=== PATIENT | male | born 1955 | race Caucasian/White ===

== ENCOUNTER 2022-09-27 22:53 | Emergency (ER) | payer BC, SELFPAY ==
[2022-09-27 23:06] VITALS: BP 165/89; PULSE 56; RESP 18; TEMP 36.8; O2SAT 99; BMI 26.2
[2022-09-27 23:11] VITALS: BP 154/89; PULSE 60; RESP 18; O2SAT 98
[2022-09-27 23:30] VITALS: O2SAT 99
[2022-09-27 23:31] VITALS: BP 153/91; PULSE 61; RESP 18; O2SAT 95
--- NOTE | 2022-09-27 23:53 | ED_ITS ---
HPI - General Adult General Date Seen: 09/27/22 Chief complaint: Chest Pain Stated complaint: Chest Pain Time Seen by Provider: 09/27/22 23:08 Source: patient Mode of arrival: ambulatory Limitations: no limitations History of Present Illness HPI narrative: Patient is a 67-year-old male who presents for evaluation of pleuritic chest pain which has been present since 05:30 this morning. Pain is localized to just left of the sternum. Does not radiate. He denies shortness of breath. Symptoms have been steady throughout the day although he feels that maybe gotten a little bit worse this evening. They are not positional. It does not hurt to move. He has not taken any medications, and says the pain is pretty mild. He denies any fever or cough. He does say week ago he was shoveling and the blade of the shoulder got caught on the pavement and the handle of the shovel hit him in the chest, but he has not had any pain in that area since then. He denies any lower extremity swelling or pain. No recent travel or immobility. No history of DVT or PE. There is no family history of coronary artery disease, DVT or PE. He denies any prior health history aside from eosinophilic es ophagitis. He does note that he is due for an EGD in the near future. He does not smoke and does not drink. Related Data Home Medications Medication Instructions Recorded Confirmed No Known Home Medications 09/27/22 09/27/22 Allergies Allergy/AdvReac Type Severity Reaction Status Date / Time No Known Drug Allergies Allergy Verified 09/27/22 23:08 Review of Systems Status of ROS: Reports: 10 or more systems reviewed and unremarkable except as noted in History and below [facility] Medical History Adenomatous colon polyp Eosinophilic esophagitis Surgical History (Updated 09/27/22 @ 23:33 by Carlos Madsen RN) History of laparoscopic cholecystectomy History of tonsillectomy Social History Smoking Status: Never smoker Do you use any of these nicotine containing products: None Second hand tobacco smoke exposure: No How often do you have a drink containing alcohol: never How often do you have six or more drinks on one occasion: Never AUDIT-C Alcohol total score: 0 Non-prescribed substance use: denies use Exam Narrative: Exam Narrative: Vital signs as noted above. In general, an alert, nontoxic male. Looks comfortable. Breathing easily. Head: Normocephalic, atraumatic. Eyes: Pupils are equal reactive. Extraocular movements are full. Conjunctivae are normal. ENT: Mucous membranes are moist. Throat is normal. Neck: Supple without lymphadenopathy. Heart: Regular rate and rhythm. No murmur or rub. Chest is nontender to palpa tion. Lungs: Clear bilaterally. No increased work of breathing, crackles or wheezes. Abdomen: Soft and nontender. No organomegaly. Extremities: Well perfused. No edema. No calf tenderness. Pulses intact. Neurologic: Patient is alert and oriented to person and place. Speech is fluent. Face is symmetric. Moves all extremities equally. Affect: Normal. Skin: Warm and dry. Well perfused. Const: Vital Signs, click to edit/add: Vital Signs - 24 hr 09/27/22 23:06 09/27/22 23:30 09/27/22 23:11 Temperature 98.2 F Pulse Rate 60 Pulse Rate [Right Pulse Oximeter] 56 L Respiratory Rate 18 18 Blood Pressure 154/89 H Blood Pressure [Ri ght Upper Arm] 165/89 H Pulse Oximetry 99 99 98 Oxygen Delivery Me thod Room Air 09/27/22 23:31 09/28/22 00:01 09/28/22 00:32 Temperature Pulse Rate 61 51 L 52 L Pulse Rate [Right Pulse Oximeter] Respiratory Rate 18 18 18 Blood Pressure 153/91 H 146/102 H 148/89 H Blood Pressure [Ri ght Upper Arm] Pulse Oximetry 95 97 97 Oxygen Delivery Me thod Documenting provider has reviewed patient's vital signs: yes Course Course Hospital Course: On arrival, patient had an EKG which by my review shows no acute ST segment changes. He is maintained on the monitor and oximetry. Overall, history is not particularly suggestive of acute coronary syndrome. Initial troponin is 0. I think with pain throughout the day, and a history that is not consistent with acute coronary syndrome that a single troponin is adequate. He does not have risk factors for PE, but is 67 years old. I am going to get a D-dimer, I think if that is negative that is adequate to rule out pulmonary embolism. If elevated, CT scan will be done. In the meantime I am holding off on chest i maging. His symptoms are not positional, I do not see evidence of pericarditis on his EKG. White count is normal at 7.4. Other labs are pending at this time. Given the trauma to his chest wall was a week ago and he has been asymptomatic since then, I doubt this represents an injury related to that episode. Troponin is 0. D-dimer is normal. Chest x-ray by my review is normal, final radiology read is negative as well. Other labs show normal white blood cell count and hemoglobin. LFTs and lipase are normal, CRP is less than 0.5. Metabolic panel is normal. He continues to feel comfortable, without further complaints. It would be reasonable to try thank you for a dose or 2 of ibuprofen, he could double up his enough resolve if needed. If his esophagitis precludes that, he could try Tylenol as well. If symptoms are persistent I would recommend follow-up with primary care next week. For severe pain, new symptoms such as shortness of breath, fever etcetera, return for re-evaluation to the ER. He is comfortable with that plan. Vital Signs Vital signs: Initial Vital Signs Temperature 98.2 F 09/27/22 23:06 Temperature Source Temporal Artery Scan 09/27/22 23:06 Pulse Rate 56 L 09/27/22 23:06 Respiratory Rate 18 09/27/22 23:06 Blood Pressure 165/89 H 09/27/22 23:06 Blood Pressure Mean 114 09/27/22 23:06 Blood Pressure Position Sitting 09/27/22 23:06 Pulse Oximetry 99 09/27/22 23:06 Oxygen Delivery Method 09/27/22 23:06 Vital Signs Temperature 98.2 F 09/27/22 23:06 Pulse Rate 56 L 09/27/22 23:06 Respiratory Rate 18 09/27/22 23:06 Blood Pressure 165/89 H 09/27/22 23:06 Pulse Oximetry 99 09/27/22 23:06 Oxygen Delivery Method 09/27/22 23:06 Temperature 98.2 F 09/27/22 23:06 Pulse Rate 52 L 09/28/22 00:32 Respiratory Rate 18 09/28/22 00:32 Blood Pressure 148/89 H 09/28/22 00:32 Pulse Oximetry 97 09/28/22 00:32 Oxygen Delivery Method 09/27/22 23:06 Medical Decision Making Lab Data Labs: Lab Results 09/27/22 09/27/22 09/27/22 Range/Units 23:35 23:45 23:45 WBC 7.40 (4.50-11.00) K/uL RBC 4.38 (4.30-5.90) m/uL Hgb 14.1 (13.5-17.5) gm/dL Hct 41.7 (37.0-53.0) % MCV 95 (80-100) fL MCH 32 (26-34) pg MCHC 34 (32-36) gm/dL RDW Coeff of Rajwinder 11.3 L (11.5-15.5) % Plt Count 225 (140-440) K/uL Neut % (Auto) 55.9 (42.0-72.0) % Lymph % (Auto) 32.3 (20-44) % [place] % (Auto) 8.9 (0.0-11.0) % Eos % (Auto) 2.3 (0.0-7.0) % Baso % (Auto) 0.5 (0.0-3.0) % Neut # (Auto) 4.13 (1.7-7.0) K/uL Lymph # (Auto) 2.39 (0.90-2.90) K/uL [place] # (Auto) 0.70 (0.00-0.90) K/UL Eos # (Auto) 0.17 (0.00-0.50) K/uL Baso # (Auto) 0.04 (0.00-0.30) K/uL D-Dimer Quant (PE/DVT) 0.38 (0.00-0.50) ug/ml Sodium (135-149) mmol/L Potassium (3.6-5.1) mmol/L Chloride (96-114) mmol/L Carbon Dioxide (20-32) mmol/L BUN (7-30) mg/dL Creatinine (0.5-1.5) mg/dL Estimated Creat Clear Estimated GFR ml/min Glucose (60-115) mg/dL Calcium (8.4-10.6) mg/dL Total Bilirubin (0.1-1.5) mg/dL Direct Bilirubin (0.0-0.5) mg/dL AST (12-35) U/L ALT (4-50) U/L Alkaline Phosphatase (40-150) U/L C-Reactive Protein (0.5-1.0) mg/dL NT-Pro-B Natriuret Pep pg/mL Total Protein (6.0-8.3) g/dL Albumin (3.3-5.0) g/dL Lipase (23-300) U/L POC Troponin I 0.00 L (0.01-0.04) ng/ml 09/27/22 Range/Units 23:45 WBC (4.50-11.00) K/uL RBC (4.30-5.90) m/uL Hgb (13.5-17.5) gm/dL Hct (37.0-53.0) % MCV (80-100) fL MCH (26-34) pg MCHC (32-36) gm/dL RDW Coeff of Rajwinder (11.5-15.5) % Plt Count (140-440) K/uL Neut % (Auto) (42.0-72.0) % Lymph % (Auto) (20-44) % [place] % (Auto) (0.0-11.0) % Eos % (Auto) (0.0-7.0) % Baso % (Auto) (0.0-3.0) % Neut # (Auto) (1.7-7.0) K/uL Lymph # (Auto) (0.90-2.90) K/uL [place] # (Auto) (0.00-0.90) K/UL Eos # (Auto) (0.00-0.50) K/uL Baso # (Auto) (0.00-0.30) K/uL D-Dimer Quant (PE/DVT) (0.00-0.50) ug/ml Sodium 138 (135-149) mmol/L Potassium 3.7 (3.6-5.1) mmol/L Chloride 104 (96-114) mmol/L Carbon Dioxide 28 (20-32) mmol/L BUN 13 (7-30) mg/dL Creatinine 0.9 (0.5-1.5) mg/dL Estimated Creat Clear 77.39 Estimated GFR 94 ml/min Glucose 93 (60-115) mg/dL Calcium 9.0 (8.4-10.6) mg/dL Total Bilirubin 0.5 (0.1-1.5) mg/dL Direct Bilirubin 0.1 (0.0-0.5) mg/dL AST 33 (12-35) U/L ALT 26 (4-50) U/L Alkaline Phosphatase 69 (40-150) U/L C-Reactive Protein < 0.5 L (0.5-1.0) mg/dL NT-Pro-B Natriuret Pep < 20 pg/mL Total Protein 7.3 (6.0-8.3) g/dL Albumin 4.4 (3.3-5.0) g/dL Lipase 63 (23-300) U/L POC Troponin I (0.01-0.04) ng/ml Discharge Plan Discharge Clinical Impression: Pleurisy Patient Disposition: Home, Self-Care Condition: Stable Instructions: Pleurisy (DC) Additional Instructions: Nonsteroidal anti-inflammatory such as ibuprofen are often helpful for this type of pain. You could take 2 pills 2 to 3 times a day with food for a couple of days. If you do not tolerate this due to your esophagitis, you could try Tylenol as well. Labs, EKG and x-ray are all reassuring. There is no evidence of a serious cause for your symptoms. They will likely improve over the next few days. If symptoms are persistent, follow-up with your primary doctor next week. If you have acute worsening, develops severe pain, shortness of breath, fevers, or other new symptoms, return to the emergency department for further evaluation. Prescriptions: No Action No Known Home Medications Follow Up/Referrals: Ashwin Silva MD [Primary Care Provider] - Stand Alone Forms: [facility] Info Instructions
[2022-09-27 23:55] LABS: Basophils Absolute Auto 0.04 K/uL (0.00-0.30); Basophils Percent Auto 0.5 % (0.0-3.0); Eosinophils Absolute Auto 0.17 K/uL (0.00-0.50); Eosinophils Percent Auto 2.3 % (0.0-7.0); Hematocrit 41.7 % (37.0-53.0); Hemoglobin* 14.1 gm/dL (13.5-17.5); Immature Granulocytes Abs Auto 0.01 K/uL (0.00-0.30); Immature Granulocytes Pct Auto 0.1 %; Lymphocytes Absolute Auto 2.39 K/uL (0.90-2.90); Lymphocytes Percent Auto 32.3 % (20-44); Mean Corpuscular HGB Conc 34 gm/dL (32-36); Mean Corpuscular Hemoglobin 32 pg (26-34); Mean Corpuscular Volume 95 fL (80-100); Monocytes Percent Auto 8.9 % (0.0-11.0); Neutrophils Absolute Auto 4.13 K/uL (1.7-7.0); Neutrophils Percent Auto 55.9 % (42.0-72.0); Platelet Count* 225 K/uL (140-440); RDW Coefficient of Variation % 11.3 % (11.5-15.5); Red Blood Count 4.38 m/uL (4.30-5.90)
[2022-09-27 23:57] LABS: Slide Review Reflex No
[2022-09-28 00:01] VITALS: BP 146/102; PULSE 51; RESP 18; O2SAT 97
[2022-09-28 00:11] LABS: Albumin* 4.4 g/dL (3.3-5.0); Chloride* 104 mmol/L (96-114)
[2022-09-28 00:12] LABS: Potassium* 3.7 mmol/L (3.6-5.1); Sodium* 138 mmol/L (135-149)
[2022-09-28 00:14] LABS: Creatinine* 0.9 mg/dL (0.5-1.5); Est. Creatinine Clearance* 77.39; Estimated Glomerular Filt Rate 94 ml/min
[2022-09-28 00:15] LABS: Alanine Aminotransferase* 26 U/L (4-50); Alkaline Phosphatase* 69 U/L (40-150); Aspartate Amino Transferase* 33 U/L (12-35); Bilirubin Direct* 0.1 mg/dL (0.0-0.5); Bilirubin Total* 0.5 mg/dL (0.1-1.5); Blood Urea Nitrogen* 13 mg/dL (7-30); Carbon Dioxide* 28 mmol/L (20-32); Glucose* 93 mg/dL (60-115); Lipase* 63 U/L (23-300); Total Protein* 7.3 g/dL (6.0-8.3)
[2022-09-28 00:17] LABS: D Dimer Quantitative* 0.38 ug/ml (0.00-0.50)
[2022-09-28 00:18] LABS: C Reactive Protein* < 0.5 mg/dL (0.5-1.0)
--- NOTE | 2022-09-28 00:28 | CRLHL7_ITS ---
For Patients: As a result of the Cures Act, medical imaging exams and procedure reports are released immediately into your electronic medical record. You may view this report before your referring provider. If you have questions, please contact your health care provider. INDICATION: Chest pain TECHNIQUE: Chest radiograph 2 views COMPARISON: None FINDINGS: Mediastinum: The mediastinum is normal in appearance. The heart silhouette is at the upper limits of normal. Lung: Both lungs are unremarkable in appearance. No sign of pleural effusion seen. No pneumothorax is identified. Bone and Soft tissue: Unremarkable for age. IMPRESSION: 1. No acute cardiopulmonary disease is seen. Dictated by: Vamshi Trinidad MD @ 09/28/2022 00:56:41 (Electronically Signed)
[2022-09-28 00:32] VITALS: BP 148/89; PULSE 52; RESP 18; O2SAT 97
[2022-09-28 00:39] LABS: NT Pro B Type NatriureticPept* < 20 pg/mL
[2022-09-28 01:07] VITALS: BP 165/89; PULSE 56; RESP 18; TEMP 36.8
== END 2022-09-28 01:07 | disposition home or self-care (01) ==
PROVIDERS: Emergency Provider Emergency Medicine; PCP Family Medicine
DX: R09.1 Pleurisy (principal)
CPT/HCPCS: 36415; 71046; 80048; 80076; 83690; 83880; 84484; 85025; 85379; 86140; 94761; 99284